=== PATIENT | female | born 1995 | race American Indian/Alaskan Native ===

== ENCOUNTER 2021-06-22 06:42 | Emergency (ER) | payer MEDICAID, OTHER ==
[2021-06-22] MEDS: Acetylcysteine 20% 200 MG/ML 30 ML Nebulizer Soln SDV PO ONE ×3 (07:29→11:33)
[2021-06-22 07:36] LABS: CHLORIDE,CL 106 mEq/L (98-106); SODIUM,NA 143 mEq/L (136-145)
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
[2021-06-22 07:57] LABS: AMPHETAMINES,URINE NEGATIVE (NEGATIVE); BARBITURATES,URINE NEGATIVE (NEGATIVE); BENZODIAZEPINE,URINE NEGATIVE (NEGATIVE); MDMA (ECSTASY), URINE NEGATIVE (NEGATIVE); METHADONE,URINE NEGATIVE (NEGATIVE); METHAMPHETAMINES,URINE NEGATIVE (NEGATIVE); OPIATES,URINE NEGATIVE (NEGATIVE); OXYCODONE,URINE NEGATIVE (NEGATIVE); PHENCYCLIDINE,URINE NEGATIVE (NEGATIVE); TCA,URINE NEGATIVE (NEGATIVE)
[2021-06-22] MEDS ORDERED: Acetylcysteine 20% 200 MG/ML 30 ML Nebulizer Soln SDV PO ONE (11:28)
== END 2021-06-22 12:46 ==
LOC: CC.ED 06:42
DX: T39.1X2A Poisoning by 4-Aminophenol derivatives, intentional self-harm, initial encounter (principal); F32.9 Major depressive disorder, single episode, unspecified; Z88.0 Allergy status to penicillin; Z72.0 Tobacco use
CPT/HCPCS: 36415; 80053; 80143; 80305-QW; 81001; 81025; 85027; 87086; 99285; A9270-GY

== ENCOUNTER 2021-07-26 03:25 | Emergency (ER) | payer MEDICAID ==
[2021-07-26 04:25] LABS: AMPHETAMINES,URINE NEGATIVE (NEGATIVE); BARBITURATES,URINE NEGATIVE (NEGATIVE); BENZODIAZEPINE,URINE NEGATIVE (NEGATIVE); MDMA (ECSTASY), URINE NEGATIVE (NEGATIVE); METHADONE,URINE NEGATIVE (NEGATIVE); METHAMPHETAMINES,URINE NEGATIVE (NEGATIVE); OPIATES,URINE NEGATIVE (NEGATIVE); OXYCODONE,URINE NEGATIVE (NEGATIVE); PHENCYCLIDINE,URINE NEGATIVE (NEGATIVE); TCA,URINE NEGATIVE (NEGATIVE)
[2021-07-26 04:34] LABS: CHLORIDE,CL 104 mEq/L (98-106); SODIUM,NA 144 mEq/L (136-145)
--- NOTE | 2021-07-26 05:04 | EDM.PDOC ---
ED HPI GENERAL MEDICAL PROBLEM - General Chief Complaint: General Stated Complaint: lexapro OD Time Seen by Provider: 07/26/21 03:56 Source of Information: Reports: Patient History Limitations: Reports: No Limitations - History of Present Illness INITIAL COMMENTS - FREE TEXT/NARRATIVE: This patient is a 25 year old female that is brought to ER via EMS. Patient reports that she was out drinking in [employer] [place] then came home. She reports to RN that she came home and got into argument with her childrens father. Patient reports "I just wanted it to be over", so she took 25 10mg tablets of Lexapro. Patient reports after taking she has had nausea and some dry heaves. She reports that could be the alcohol that she drank. Patient reports drinking about 5 galsses of alcohol that are 99% alcohol per patient. Patient is alert and oriented. Denies soa, cp, v, dizziness, syncope, falls. Onset: Today Onset Date: 07/26/21 Onset Time: 02:00 Severity: Moderate Improves with: Reports: None Worsens with: Reports: None Associated Symptoms: Reports: Nausea/Vomiting (nausea) - Related Data Allergies Allergy/AdvReac Type Severity Reaction Status Date / Time clavulanic acid Allergy Intermediate Cannot Verified 07/26/21 03:50 [From Augmentin] Remember amoxicillin [From Augmentin] Allergy Cannot Verified 07/26/21 03:50 Remember Penicillins Allergy Cannot Verified 07/26/21 03:50 Remember Home Meds: Home Meds Escitalopram Oxalate [Lexapro] 10 mg PO DAILY 07/26/21 [History] Past Medical History - Past Health History Medical/Surgical History: Denies Medical/Surgical History HEENT History: Reports: None Cardiovascular History: Reports: None Respiratory History: Reports: None Gastrointestinal History: Reports: GERD Genitourinary History: Reports: None FINAL RAIL 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 FINAL RAIL CUTTER History: last delivery 09/24/18 Musculoskeletal History: Reports: None Neurological History: Reports: None Psychiatric History: Reports: None Endocrine/Metabolic History: Reports: None Hematologic History: Reports: Anemia Immunologic History: Reports: None Oncologic (Cancer) History: Reports: None Dermatologic History: Reports: None - Infectious Disease History Infectious Disease History: Reports: None - Past Surgical History Head Surgeries/Procedures: Reports: None Female Surgical History: Reports: Cystoscopy Social & Family History - Family History Family Medical History: No Pertinent Family History - Tobacco Use Tobacco Use Status *Q: Current Every Day Tobacco User Years of Tobacco use: 10 Packs/Tins Daily: 0.5 - Caffeine Use Caffeine Use: Reports: None - Living Situation & Occupation Living situation: Reports: with Significant Other (Engaged) ED ROS GENERAL - Review of Systems Review Of Systems: See Below Constitutional: Reports: No Symptoms HEENT: Reports: No Symptoms Respiratory: Reports: No Symptoms Cardiovascular: Reports: No Symptoms. Denies: Chest Pain, Dyspnea on Exertion, Edema, Lightheadedness, Palpitations, Syncope Endocrine: Reports: No Symptoms GI/Abdominal: Reports: Nausea. Denies: Abdominal Pain, Vomiting : Reports: No Symptoms Musculoskeletal: Reports: No Symptoms Skin: Reports: No Symptoms Neurological: Reports: No Symptoms Psychiatric: Reports: Depression, Suicidal Ideation (she said not currently, but was "looking for a way out"). Denies: Homicidal Ideation Hematologic/Lymphatic: Reports: No Symptoms Immunologic: Reports: No Symptoms ED EXAM, GENERAL - Physical Exam Exam: See Below Exam Limited By: No Limitations General Appearance: Alert, WD/WN, No Apparent Distress, Obese Eye Exam: Bilateral Eye: Normal Inspection, PERRL Ears: Normal External Exam, Normal Canal, Hearing Grossly Normal, Normal TMs Ear Exam: Bilateral Ear: Auricle Normal, Canal Normal, TM normal Nose: Normal Inspection, Normal Mucosa, No Blood Throat/Mouth: Normal Inspection, Normal Lips, Normal Teeth, Normal Gums, Normal Oropharynx, Normal Voice, No Airway Compromise Head: Atraumatic, Normocephalic Neck: Normal Inspection, Supple, Non-Tender, Full Range of Motion Respiratory/Chest: No Respiratory Distress, Lungs Clear, Normal Breath Sounds, No Accessory Muscle Use Cardiovascular: Normal Peripheral Pulses, Regular Rate, Rhythm (98 on exam, but does go as high as 108 at times. ), No Edema, No Gallop, No JVD, No Murmur, No Rub Peripheral Pulses: 2+: Radial (L), Radial (R), Posterior Tibial (L), Posterior Tibial (R) GI/Abdominal: Soft, Non-Tender Back Exam: Normal Inspection Extremities: Normal Inspection, No Pedal Edema, Normal Capillary Refill Neurological: Alert, Oriented, Normal Cognition, No Motor/Sensory Deficits Psychiatric: Tearful Skin Exam: Warm, Dry, Normal Color, No Rash, Wound/Incision (superficial cut brewster left anterior thigh. Healing. Not open or new. ). No: Ecchymosis #1 Interpretation EKG Date: 07/26/21 Time: 04:14 Rate (Beats/Min): 95 ST-T: Normal QT: Prolonged (QT 410 QTc 515) Comparison: NA - No Prior EKG #2 Interpretation EKG Date: 07/26/21 Time: 08:40 Rate (Beats/Min): 90 ST-T: Normal QT: Prolonged (QT 414 QTc 506) EKG Interpretation Comments: EKG remains QTc prolongation. #3 Interpretation EKG Date: 07/26/21 Time: 12:02 Rate (Beats/Min): 83 QT: Prolonged (but improved and QT is under 500 and narrowing. QT 424, QTc 498.) Comparison: Change From Previous EKG (improvement) Course - Vital Signs Last Recorded V/S: Last Vital Signs Temp 98 F 07/26/21 04:33 Pulse 107 H 07/26/21 05:29 Resp 18 07/26/21 04:33 BP 118/68 07/26/21 04:33 Pulse Ox 97 07/26/21 04:33 - Orders/Labs/Meds Orders: Active Orders 24 hr Category Date Time Status Cardiac Monitoring [RC] . DIRECTED Care 07/26/21 03:59 Active EKG Documentation Completion [RC] ROUTINE Care 07/26/21 12:00 Active Labs: Laboratory Tests 07/26/21 07/26/21 07/26/21 Range/Units 03:56 03:56 03:56 WBC (4.0-11.0) 10^3/uL RBC (4.00-5.50) x10^6/uL Hgb (12.0-16.0) g/dL Hct (37.0-47.0) % MCV (83.0-97.0) fL MCH (27.0-32.0) pg MCHC (32.0-36.0) g/dL RDW Coeff of Sami (11.0-15.0) % Plt Count (150-400) 10^3/uL Immature Gran % (Auto) (0.0-4.9) % Neut % (Auto) (41-71) % Lymph % (Auto) (24-44) % Upson % (Auto) (0-10) % Eos % (Auto) (0-6) % Baso % (Auto) (0-1) % Neut # (Auto) (1.80-8.00) x10^3/uL Lymph # (Auto) (0.60-5.00) 10^3/uL Upson # (Auto) (0.00-1.50) 10^3/uL Eos # (Auto) (0.00-1.50) 10^3/uL Baso # (Auto) (0.00-0.50) 10^3/uL Immature Gran # (Auto) (0.00-0.49) 10^3/uL Sodium (136-145) mEq/L Potassium (3.5-5.0) mEq/L Chloride (98-106) mEq/L Carbon Dioxide (21-32) mmol/L BUN (7-18) mg/dL Creatinine (0.6-1.0) mg/dL Est Cr Clr Drug Dosing mL/min Estimated GFR (MDRD) (>=60) mL/min Glucose (75-99) mg/dL Calcium (8.4-10.1) mg/dL Magnesium (1.8-2.4) mg/dL Total Bilirubin (0.0-1.0) mg/dL AST (15-37) U/L ALT (12-78) U/L Alkaline Phosphatase (46-116) U/L Total Protein (6.4-8.2) g/dL Albumin (3.4-5.0) g/dL Urine Color Light yellow (YELLOW) Urine Appearance Clear (CLEAR) Urine pH 6.0 (4.5-8.0) Ur Specific [place] <= 1.005 (1.003-1.020) Urine Protein Negative (NEGATIVE) mg/dL Urine Glucose (UA) Negative (NEGATIVE) mg/dL Urine Ketones Negative (NEGATIVE) mg/dL Urine Occult Blood Large H (NEGATIVE) Urine Nitrite Negative (NEGATIVE) Urine Bilirubin Negative (NEGATIVE) Urine Urobilinogen 0.2 (0.2-1.0) EU/dL Ur Leukocyte Esterase Trace H (NEGATIVE) Urine RBC 0-5 (0-5) /HPF Urine WBC Not seen (0-5) /HPF Ur Epithelial Cells Occasional H (NOT SEEN) /HPF Urine HCG, Qual Negative Urine Opiates Screen Negative (NEGATIVE) Ur Oxycodone Screen Negative (NEGATIVE) Urine Methadone Screen Negative (NEGATIVE) Ur Barbiturates Screen Negative (NEGATIVE) U Tricyclic Antidepress Negative (NEGATIVE) Ur Phencyclidine Scrn Negative (NEGATIVE) Ur Amphetamine Screen Negative (NEGATIVE) U Methamphetamines Scrn Negative (NEGATIVE) Urine MDMA Screen Negative (NEGATIVE) U Benzodiazepines Scrn Negative (NEGATIVE) Urine Cocaine Screen Negative (NEGATIVE) U Marijuana (THC) Screen Negative (NEGATIVE) Ethyl Alcohol (0-3) mg/dL SARS CoV-2 RNA Rapid LISSETTE (NEGATIVE) 07/26/21 07/26/21 07/26/21 Range/Units 03:59 04:00 04:10 WBC 8.7 (4.0-11.0) 10^3/uL RBC 5.37 (4.00-5.50) x10^6/uL Hgb 13.9 (12.0-16.0) g/dL Hct 43.0 (37.0-47.0) % MCV 80.1 L (83.0-97.0) fL MCH 25.9 L (27.0-32.0) pg MCHC 32.3 (32.0-36.0) g/dL RDW Coeff of Sami 15.0 (11.0-15.0) % Plt Count 273 (150-400) 10^3/uL Immature Gran % (Auto) 0.1 (0.0-4.9) % Neut % (Auto) 64.9 (41-71) % Lymph % (Auto) 28.9 (24-44) % Upson % (Auto) 4.5 (0-10) % Eos % (Auto) 0.8 (0-6) % Baso % (Auto) 0.8 (0-1) % Neut # (Auto) 5.63 (1.80-8.00) x10^3/uL Lymph # (Auto) 2.51 (0.60-5.00) 10^3/uL Upson # (Auto) 0.39 (0.00-1.50) 10^3/uL Eos # (Auto) 0.07 (0.00-1.50) 10^3/uL Baso # (Auto) 0.07 (0.00-0.50) 10^3/uL Immature Gran # (Auto) 0.01 (0.00-0.49) 10^3/uL Sodium (136-145) mEq/L Potassium (3.5-5.0) mEq/L Chloride (98-106) mEq/L Carbon Dioxide (21-32) mmol/L BUN (7-18) mg/dL Creatinine (0.6-1.0) mg/dL Est Cr Clr Drug Dosing mL/min Estimated GFR (MDRD) (>=60) mL/min Glucose (75-99) mg/dL Calcium (8.4-10.1) mg/dL Magnesium 2.4 (1.8-2.4) mg/dL Total Bilirubin (0.0-1.0) mg/dL AST (15-37) U/L ALT (12-78) U/L Alkaline Phosphatase (46-116) U/L Total Protein (6.4-8.2) g/dL Albumin (3.4-5.0) g/dL Urine Color (YELLOW) Urine Appearance (CLEAR) Urine pH (4.5-8.0) Ur Specific [place] (1.003-1.020) Urine Protein (NEGATIVE) mg/dL Urine Glucose (UA) (NEGATIVE) mg/dL Urine Ketones (NEGATIVE) mg/dL Urine Occult Blood (NEGATIVE) Urine Nitrite (NEGATIVE) Urine Bilirubin (NEGATIVE) Urine Urobilinogen (0.2-1.0) EU/dL Ur Leukocyte Esterase (NEGATIVE) Urine RBC (0-5) /HPF Urine WBC (0-5) /HPF Ur Epithelial Cells (NOT SEEN) /HPF Urine HCG, Qual Urine Opiates Screen (NEGATIVE) Ur Oxycodone Screen (NEGATIVE) Urine Methadone Screen (NEGATIVE) Ur Barbiturates Screen (NEGATIVE) U Tricyclic Antidepress (NEGATIVE) Ur Phencyclidine Scrn (NEGATIVE) Ur Amphetamine Screen (NEGATIVE) U Methamphetamines Scrn (NEGATIVE) Urine MDMA Screen (NEGATIVE) U Benzodiazepines Scrn (NEGATIVE) Urine Cocaine Screen (NEGATIVE) U Marijuana (THC) Screen (NEGATIVE) Ethyl Alcohol (0-3) mg/dL SARS CoV-2 RNA Rapid LISSETTE Negative (NEGATIVE) 07/26/21 07/26/21 Range/Units 04:10 08:50 WBC (4.0-11.0) 10^3/uL RBC (4.00-5.50) x10^6/uL Hgb (12.0-16.0) g/dL Hct (37.0-47.0) % MCV (83.0-97.0) fL MCH (27.0-32.0) pg MCHC (32.0-36.0) g/dL RDW Coeff of Sami (11.0-15.0) % Plt Count (150-400) 10^3/uL Immature Gran % (Auto) (0.0-4.9) % Neut % (Auto) (41-71) % Lymph % (Auto) (24-44) % Upson % (Auto) (0-10) % Eos % (Auto) (0-6) % Baso % (Auto) (0-1) % Neut # (Auto) (1.80-8.00) x10^3/uL Lymph # (Auto) (0.60-5.00) 10^3/uL Upson # (Auto) (0.00-1.50) 10^3/uL Eos # (Auto) (0.00-1.50) 10^3/uL Baso # (Auto) (0.00-0.50) 10^3/uL Immature Gran # (Auto) (0.00-0.49) 10^3/uL Sodium 144 (136-145) mEq/L Potassium 3.4 L (3.5-5.0) mEq/L Chloride 104 (98-106) mEq/L Carbon Dioxide 24 (21-32) mmol/L BUN 6 L (7-18) mg/dL Creatinine 0.8 (0.6-1.0) mg/dL Est Cr Clr Drug Dosing 101.51 mL/min Estimated GFR (MDRD) > 60 (>=60) mL/min Glucose 102 H (75-99) mg/dL Calcium 8.8 (8.4-10.1) mg/dL Magnesium (1.8-2.4) mg/dL Total Bilirubin 0.3 (0.0-1.0) mg/dL AST 35 (15-37) U/L ALT 69 (12-78) U/L Alkaline Phosphatase 98 (46-116) U/L Total Protein 8.6 H (6.4-8.2) g/dL Albumin 4.1 (3.4-5.0) g/dL Urine Color (YELLOW) Urine Appearance (CLEAR) Urine pH (4.5-8.0) Ur Specific [place] (1.003-1.020) Urine Protein (NEGATIVE) mg/dL Urine Glucose (UA) (NEGATIVE) mg/dL Urine Ketones (NEGATIVE) mg/dL Urine Occult Blood (NEGATIVE) Urine Nitrite (NEGATIVE) Urine Bilirubin (NEGATIVE) Urine Urobilinogen (0.2-1.0) EU/dL Ur Leukocyte Esterase (NEGATIVE) Urine RBC (0-5) /HPF Urine WBC (0-5) /HPF Ur Epithelial Cells (NOT SEEN) /HPF Urine HCG, Qual Urine Opiates Screen (NEGATIVE) Ur Oxycodone Screen (NEGATIVE) Urine Methadone Screen (NEGATIVE) Ur Barbiturates Screen (NEGATIVE) U Tricyclic Antidepress (NEGATIVE) Ur Phencyclidine Scrn (NEGATIVE) Ur Amphetamine Screen (NEGATIVE) U Methamphetamines Scrn (NEGATIVE) Urine MDMA Screen (NEGATIVE) U Benzodiazepines Scrn (NEGATIVE) Urine Cocaine Screen (NEGATIVE) U Marijuana (THC) Screen (NEGATIVE) Ethyl Alcohol 182 H 96 H (0-3) mg/dL SARS CoV-2 RNA Rapid LISSETTE (NEGATIVE) Meds: Medications Discontinued Medications Generic Name Dose Route Start Last Admin Trade Name Freq PRN Reason Stop Dose Admin Multivitamins/Minerals 10 ml/ 1,015.2 mls @ 1,000 mls/hr 07/26/21 08:41 07/26/21 09:25 Folic Acid 1 mg/ Thiamine HCl IV 07/26/21 09:41 Not Given 100 mg/ Magnesium Sulfate 2 gm ONETIME ONE / Sodium Chloride Sodium Chloride 1,000 mls @ 1,000 mls/hr 07/26/21 08:43 07/26/21 09:25 Normal Saline IV 07/26/21 09:42 Not Given .BOLUS ONE - Re-Assessments/Exams Free Text/Narrative Re-Assessment/Exam: 07/26/21 04:30am DAPHNE Ragland had discussed patient with poison control prior to patient arrival. They report to give antiemetics as needed for vomiting, ativan for agitation. They reports to obtain EKG to check for QT interval prolongation. EKG does show prolongation, therefore, I contacted Jessika Galeana for consultation. reports to reach out to Poison control and see if they would like me to give Magnesium sulfate to this patient. I then called Poison control and discussed patient and the EKG results. They report that magnesium level is normal, so not to give. They report just watch the patient. Current EKG shows QTC prolongation with QT 410 and QTc 515. Poison control reports to repeat the EKG in 4 hours. If narrowing of the QT/QTc, then may discharge home. At that time, I will consult for psych consultation of this patient. Tylenol level is a send out test. Will not get that back today. Patient last overdose was Tylenol. Patient insists this time she did not take any Tylenol. 07/26/21 09:42 Patient EKG still shows QTc prolongation. It is improved, but still prolonged. Patient reports no complaints or symptoms. I called and spoke to [facility] about this patient. They report to repeat EKG at noon. 07/26/21 10:52 I have reached out to [facility] about this patient for a behavioral consult/screening. They will call me back. 07/26/21 11:10 Behavioral [facility] has called back. I spoke to them about the patient. They will talk to her via camera in the ER. 07/26/21 11:44 I have spoken to Behavior[facility]. He reports he has spoken to the patient. He reports the patient is currently not suicidal or homicidal. He reports that the patient does not any plan to harm herself or others. He reports the patient has a plan to go home, get her children, and go stay with her mother in [place]. This is her safe plan. He reports there no guns in the home or other means to harm herself. He reports the patient made the decision to take the pills because she was angry at someone and she was drunk. He reports patient would not have done this if she was sober. He reports the patient needs out patient chemical evaluation and to see therapist on a regular basis. She is prescribed her Lexapro by [facility] in [place] psych. If this patient is medically cleared, I will discharge her home. She has also now told me that she does not want to hurt herself or anyone. [facility] has recommended patient stop drinking. He reports could go either way with in patient or discharge, but reports again patient is not currently suicidal and this was from intoxication. Will repeat EKG at noon. 07/26/21 12:09 Patient has no symptoms. No chest pain, dyspnea, or palpitations. No homicidal or suicidal ideations. Her EKG has imrpoved. Still shows QT prolongation, but QT is now under 500 and narrowing QT 424. HR is now 83 on EKG. I called and spoke to Poison control. They report the patient can now be safely discharged home. I will discharge this patient home. Departure - Departure Time of Disposition: 12:10 Disposition: Home, Self-Care 01 Condition: Fair Clinical Impression: Prolonged Q-T interval on ECG SSRI overdose Qualifiers: Encounter type: initial encounter Injury intent: intentional self-harm Qualified Code(s): T43.222A - Poisoning by selective serotonin reuptake inhibitors, intentional self-harm, initial encounter - Discharge Information *PRESCRIPTION DRUG MONITORING PROGRAM REVIEWED*: Not Applicable *COPY OF PRESCRIPTION DRUG MONITORING REPORT IN PATIENT ANGELO: Not Applicable Instructions: Intentional Drug Overdose Referrals: PCP,None [Primary Care Provider] - Forms: ED Department Discharge Additional Instructions: Followup with your primary care provider Followup with Swathi Aparicio physician assistant speech language pathologist Please seek chemical dependence evaluation with Swathi Aparicio Please go a safe place If you feel suicidal or homicidal, please go to the nearest ER for help Please return to the ER for worsening of condition or any emergent concerns EKG showed prolonged QT intervals: This has improved and now safe to be discharged home Sepsis Event Note (ED) - Evaluation Sepsis Screening Result: No Definite Risk - Focused Exam Vital Signs: Vital Signs Temp Pulse Resp BP Pulse Ox 07/26/21 05:29 107 H 07/26/21 04:33 98 F 102 H 18 118/68 97 07/26/21 04:11 98.2 F 84 18 110/71 98 - My Orders Last 24 Hours: My Active Orders 07/26/21 03:59 Cardiac Monitoring [RC] . DIRECTED 07/26/21 12:00 EKG Documentation Completion [RC] ROUTINE - Assessment/Plan Last 24 Hours: My Active Orders 07/26/21 03:59 Cardiac Monitoring [RC] . DIRECTED 07/26/21 12:00 EKG Documentation Completion [RC] ROUTINE Plan: PLEASE SEE RN NOTE FOR PFSH
[2021-07-26] MEDS: MVI, Adult with Vitamin K 10 ML, Folic Acid 1 MG, Thiamine 100 MG, Magnesium Sulfate 2 ... IV ONE ×5 (09:25)
[2021-07-26] MEDS: Sodium Chloride 0.9% 1,000 ML IV ONE (09:25)
== END 2021-07-26 12:37 | disposition home or self-care (01) ==
LOC: CC.ED 03:25
DX: T43.222A Poisoning by selective serotonin reuptake inhibitors, intentional self-harm, initial encounter (principal); R94.31 Abnormal electrocardiogram [ECG] [EKG]; Z88.0 Allergy status to penicillin; Z72.0 Tobacco use; Z20.822 Contact with and (suspected) exposure to COVID-19
CPT/HCPCS: 36415; 80053; 80305-QW; 80307; 81001; 81025; 83735; 85025; 93005; 99284-25; U0002